=== PATIENT | female | born 1985 | race Two or more races ===

== ENCOUNTER 2022-05-06 01:44 | Inpatient (IN) | payer OTHER ==
[~2022-05-06] VITALS: Ht 175.3 cm; Wt 2.3 kg
[2022-05-06] MEDS ORDERED: PRENATAL CAPLE1 EAC1 PO (07:23)
[2022-05-06] MEDS ORDERED: IRON236 MG PO (07:23)
[2022-05-06] MEDS ORDERED: PROBIOTIC250 MG (07:23)
== END 2022-05-10 13:39 | disposition home or self-care (01) | DRG 786 ==
LOC: OB/GYN 01:44 → LDR 01:44 → OB/GYN 05-07 11:54
PROVIDERS: Obstetrics & Gynecology; ADMIT Obstetrics & Gynecology Gynecology; ATTEND Obstetrics & Gynecology Gynecology
PROC: BY4FZZZ Ultrasonography of Third Trimester, Single Fetus (ICD-10-PCS; 2022-05-06)
PROC: 4A1HXCZ Monitoring of Products of Conception, Cardiac Rate, External Approach (ICD-10-PCS; 2022-05-06)
PROC: 10D00Z1 Extraction of Products of Conception, Low, Open Approach (ICD-10-PCS; principal; 2022-05-07 11:00)
DX: O36.8330 Maternal care for abnormalities of the fetal heart rate or rhythm, third trimester, not applicable or unspecified (principal); O60.14X0 Preterm labor third trimester with preterm delivery third trimester, not applicable or unspecified; Z3A.35 35 weeks gestation of pregnancy; Z37.0 Single live birth; Z20.822 Contact with and (suspected) exposure to COVID-19